=== PATIENT | female | born 1985 | race Caucasian/White ===

== ENCOUNTER → 2017-03-25 | Outpatient (CLI) | payer OTHER ==
[2017-03-25 16:34] LABS: URINE APPEARANCE CLEAR (CLEAR); URINE BILIRUBIN NEG (NEG); URINE COLOR YELLOW; URINE NITRITE NEG (NEG); URINE PH 6.5 (4.5-7.5); URINE SPECIFIC GRAVITY 1.017 (1.000-1.030); UROBILINOGEN NEG (NEG)
[2017-03-25 16:42] LABS: MANUAL MICROSCOPIC REQUIRED? NO; REVIEW REQ? NO
== END | disposition home or self-care (01) ==
LOC: C.LABSPEC 15:59
PROVIDERS: ATTEND Obstetrics & Gynecology
DX: Z34.01 Encounter for supervision of normal first pregnancy, first trimester (principal)

== ENCOUNTER → 2017-04-01 | Outpatient (CLI) | payer OTHER ==
[2017-04-04 15:39] LABS: CHLAMYDIA TRACH RNA*** NOT DETECTED (NOT DETECTED); GC (NEIS GONORRHOEAE)RNA** NOT DETECTED (NOT DETECTED)
== END | disposition home or self-care (01) ==
LOC: C.LABSPEC 17:44
PROVIDERS: ATTEND Obstetrics & Gynecology
DX: Z34.01 Encounter for supervision of normal first pregnancy, first trimester (principal)

== ENCOUNTER → 2017-04-01 | Outpatient (CLI) | payer OTHER ==
[2017-04-01 17:39] LABS: BASO % 0.2 %; BASO ABS # 0.03 K/uL (0-0.2); COMPLETE YES; EOS % 0.1 %; HEMATOCRIT 39.3 % (37-47); IG% 0.4 %; LYMPH % 17.2 %; LYMPH ABS # 2.22 K/uL (1.2-3.4); MEAN CELL VOLUME 87.3 fL (80-100); MEAN CORPUSCULAR HGB CONC 34.4 g/dl (32-36); MEAN PLATELET VOLUME 11.1 fL (7.4-10.4); MONO % 4.7 %; NEUT % 77.4 %; PLATELET COUNT 234 K/uL (130-400); WHITE BLOOD COUNT 12.88 K/uL (4.8-10.8)
== END | disposition home or self-care (01) ==
LOC: C.LAB1850 16:11
PROVIDERS: ATTEND Obstetrics & Gynecology
DX: Z34.01 Encounter for supervision of normal first pregnancy, first trimester (principal)

== ENCOUNTER → 2017-05-27 | Outpatient (CLI) | payer OTHER ==
[2017-05-27 17:13] LABS: GTGD 50 Grams
== END | disposition home or self-care (01) ==
LOC: C.LAB1850 16:02
PROVIDERS: ATTEND Obstetrics & Gynecology
DX: Z34.02 Encounter for supervision of normal first pregnancy, second trimester (principal)

== ENCOUNTER → 2017-08-26 | Outpatient (CLI) | payer OTHER ==
[2017-08-26 16:43] LABS: HEMATOCRIT 33.1 % (37-47)
[2017-08-26 17:14] LABS: GTGD 50 Grams
[2017-08-26 18:24] LABS: URINE APPEARANCE CLEAR (CLEAR); URINE BILIRUBIN NEG (NEG); URINE COLOR YELLOW; URINE EPITHELIAL CELL AUTO 20-30 /lpf (0-5); URINE NITRITE NEG (NEG); URINE PH 6.5 (4.5-7.5); URINE SPECIFIC GRAVITY 1.016 (1.000-1.030); UROBILINOGEN NEG (NEG)
[2017-08-26 18:29] LABS: MANUAL MICROSCOPIC REQUIRED? NO; REVIEW REQ? NO
== END | disposition home or self-care (01) ==
LOC: C.LAB1850 15:50
PROVIDERS: ATTEND Obstetrics & Gynecology
DX: Z34.02 Encounter for supervision of normal first pregnancy, second trimester (principal)

== ENCOUNTER → 2017-09-08 | Outpatient (CLI) | payer OTHER | END | disposition home or self-care (01) | LOC: C.LAB1850 08:04 | PROVIDERS: ATTEND Obstetrics & Gynecology | DX: O28.1 Abnormal biochemical finding on antenatal screening of mother (principal) ==

== ENCOUNTER → 2017-10-19 | Outpatient (CLI) | payer OTHER | END | disposition home or self-care (01) | LOC: C.LABSPEC 17:33 | PROVIDERS: ATTEND Obstetrics & Gynecology | DX: Z34.03 Encounter for supervision of normal first pregnancy, third trimester (principal) ==

== ENCOUNTER 2017-11-04 16:52 | Inpatient (IN) | payer OTHER ==
[~2017-11-04] VITALS: Ht 162.6 cm; Wt 105.0 kg
[2017-11-04 17:39] VITALS: Ht 162.6 cm; Wt 105.0 kg
[2017-11-04] MEDS ORDERED: PRENTAB26 PO (17:40)
[2017-11-04 18:30] LABS: HEMATOCRIT 38.1 % (37-47); MEAN CELL VOLUME 86.6 fL (80-100); MEAN CORPUSCULAR HEMOGLOBIN 29.8 pg (25-34); MEAN CORPUSCULAR HGB CONC 34.4 g/dl (32-36); MEAN PLATELET VOLUME 12.3 fL (7.4-10.4); PLATELET COUNT 135 K/uL (130-400); WHITE BLOOD COUNT 9.08 K/uL (4.8-10.8)
[2017-11-04 18:51] LABS: ALT/SGPT 24 U/L (12-78); AST/SGOT 25 U/L (15-37); CREATININE 0.65 mg/dl (0.60-1.20)
[2017-11-04 18:54] LABS: ALKALINE PHOSPHATASE 172 U/L (45-117)
[2017-11-04] MEDS ORDERED: LACTATED RINGER'S 1000ML 1,000 ML IV PRN (21:05)
[2017-11-05] MEDS: LACTATED RINGER'S 1000ML 1,000 ML IV SCH ×2 (00:56→05:10)
[2017-11-05] MEDS ORDERED: BUTORPHANOL TARTRATE 1 MG/ML VIAL IV PRN (02:15)
[2017-11-05] MEDS ORDERED: LACTATED RINGER'S 1000ML 500 ML IV PRN ×2 (03:57→05:39)
[2017-11-05] MEDS ORDERED: OXYTOCIN 30 UNITS/500ML NSS IV PRN ×2 (04:00→10:15)
[2017-11-05] MEDS ORDERED: BUPIVACAINE 0.25% 30 ML VIAL ONE (04:49)
[2017-11-05] MEDS ORDERED: FENTANYL 2MCG/ML ROPIV 1.25MG/ML 100ML BAG EPI ONE (04:49)
[2017-11-05] MEDS ORDERED: EpHEDrine SULFATE INJ 50 MG/ML AMP ONE (04:49)
[2017-11-05] MEDS ORDERED: FENTANYL CITRATE INJ 50 MCG/1 ML 2 ML VIAL ONE (04:49)
[2017-11-05] MEDS ORDERED: NALOXONE HCL INJ 1 MG in SODIUM CHLORIDE 0.9% 1000ML 1,000 ML IV PRN (05:39)
[2017-11-05] MEDS ORDERED: NALOXONE HCL INJ 0.4 MG/1 ML VIAL/CARP IV PRN (05:45)
[2017-11-05] MEDS ORDERED: FENTANYL 2MCG/ML ROPIV 1.25MG/ML 100ML BAG EPI PRN (05:45)
[2017-11-05] MEDS ORDERED: EpHEDrine SULFATE INJ 50 MG/ML AMP IV PRN (05:45)
[2017-11-05] MEDS ORDERED: NALBUPHINE HCL INJ 10 MG/ML AMP IV PRN (05:45)
[2017-11-05] MEDS ORDERED: DiphenhydrAMINE HCL 50 MG/ML VIAL IV PRN (05:45)
[2017-11-05] MEDS ORDERED: ONDANSETRON INJ 2 MG/ML 2 ML VIAL IV PRN (05:45)
[2017-11-05] MEDS ORDERED: HYDROCORTISONE ACETATE 25 MG SUPP PR PRN (10:15)
[2017-11-05] MEDS ORDERED: SUPERCREAM 0.870 % 15GM JAR EXT PRN (10:15)
[2017-11-05] MEDS ORDERED: LANOLIN OINT EXT PRN ×2 (10:15)
[2017-11-05] MEDS ORDERED: BENZOCAINE 20% AER SPR 82.5 GM CAN EXT PRN (10:15)
[2017-11-05] MEDS ORDERED: ACETAMINOPHEN 325 MG TAB PO PRN (10:15)
--- NOTE | 2017-11-05 10:45 | DELIVERY SUMMARY ---
DATE OF OPERATION: 11/05/2017 FINDINGS: Viable male with Apgars of 8 and 9. Baby delivered over a midline second-degree laceration with second-degree right labial tear. Placenta delivered spontaneously. Cord gasses are pending. Lacerations repaired in the routine fashion. ESTIMATED BLOOD LOSS: 300 mL. LABOR NOTE: The patient is a 32-year-old 1, para 0 with an EDC of 13 November at 38+ weeks gestational age, who was sent to labor and delivery on the evening of 04 November from the office for evaluation of elevated blood pressure. The patient's blood pressure was noted to be elevated x2 to 160/90 range at her regularly scheduled OB visit. No previous elevated blood pressures. The patient was sent to labor and delivery for further observation and was deemed to have a generational hypertension and was admitted. Her course prior to this had been unremarkable. Her blood type AB positive, antibody negative, rubella immune, and hepatitis B negative. She had normal 1-hour Glucola at 16 weeks, elevated at 28 weeks with a normal 2-hour glucose tolerance test and a negative third trimester beta strep blood culture. On labor and delivery, the patient had preeclamptic labs drawn, which were within normal limits, but her blood pressure remained elevated, making the diagnosis of gestational hypertension. Coincident with this, the patient began to develop katharina and went into labor spontaneously on her own. The contractions increased in intensity and anesthesia was consulted and epidural was placed. After placement of epidural, contractions had spaced out and Pitocin augmentation was initiated. The patient progressed to approximately 5-6 cm dilated at which point, delivering physician assumed the case. The patient went onto progress to full dilatation and began her second stage. She pushed for approximately 30 minutes, delivering the viable male infant. Nuchal cord x1 reduced on the perineum. Cord was clamped and cut. Cord gases and cord blood samples obtained. Placenta delivered spontaneously. Inspection of the perineum showed a midline second-degree laceration with a right labial tear. Laceration was repaired with 4-0 and 2-0 Vicryl as well as the right labial laceration with 4-0 Vicryl. Estimated blood loss was 300 mL. Sponge and needle count was correct. I attest to the content of the Intraoperative Record and any orders documented therein. Any exception s are noted below.
--- NOTE | 2017-11-05 12:00 | Anesthesia Procedure Note ---
Anesthesia Epidural Removal Nt Date & Time Nov 05, 2017 at 11:59 Vital Signs Pain Intensity: 0.0 Notes Mental Status: alert / awake / arousable, participated in evaluation Nausea / Vomiting: adequately controlled Pain: adequately controlled Airway Patency, RR, SpO2: stable & adequate BP & HR: stable & adequate Hydration State: stable & adequate Neuraxial Anesthesia: was administered, sensory block is resolving Anesthetic Complications: no major complications apparent, pt satisfied with anesthetic care Epidural: removed without complications, with tip intact
[2017-11-05] MEDS: IBUPROFEN 600 MG TAB PO PRN ×2 (12:45→20:30)
[2017-11-05 14:05] VITALS: BP 156/90; PULSE 100; TEMP 37.2
[2017-11-05 15:30] VITALS: BP 142/90; PULSE 80; TEMP 36.8; O2SAT 98
[2017-11-05 20:00] VITALS: BP 155/90; PULSE 88; TEMP 36.7; O2SAT 98
[2017-11-05] MEDS: DOCUSATE SODIUM 100 MG CAP PO SCH (20:11)
[2017-11-05 23:25] VITALS: BP 153/84; PULSE 85; TEMP 36.8; O2SAT 97
[2017-11-06 03:05] VITALS: BP 133/80; PULSE 85; TEMP 36.5; O2SAT 99
[2017-11-06] MEDS: IBUPROFEN 600 MG TAB PO PRN ×3 (03:23→16:46)
[2017-11-06 07:40] VITALS: BP 136/91; PULSE 68; TEMP 36.8
--- NOTE | 2017-11-06 07:40 | Progress Note ---
Subjective Nov 06, 2017. Subjective conversation w/ patient, physical exam, chart review, lab review Ambulation: ambulating normally Voiding: no voiding problems Passing Gas: Yes Diet Tolerance: Regular Diet Lochia: Moderate Feeding Type: Breast Feeding Pain: controlled Review of Systems Respiratory: No shortness of breath Cardiac: No chest pain Female : No dysuria Objective Vital Signs Date Time Temp Pulse Resp B/P (MAP) Pulse Ox O2 Delivery O2 Flow Rate FiO2 11/06/17 03:05 36.5 85 16 133/80 (97) 99 Room Air 11/05/17 23:25 97 Room Air 11/05/17 23:25 36.8 85 20 153/84 (107) 97 Room Air 11/05/17 20:00 36.7 88 16 155/90 (111) 98 Room Air 11/05/17 15:30 36.8 80 16 142/90 (107) 98 Room Air 11/05/17 15:30 98 Room Air 11/05/17 14:05 37.2 100 18 156/90 11/05/17 14:05 37.2 100 18 156/90 (112) Room Air 11/05/17 14:05 Room Air Physical Exam General Appearance: WELL-APPEARING, WD/WN, NO APPARENT DISTRESS Respiratory/Chest: lungs clear, normal breath sounds, no respiratory distress Cardiovascular: regular rate, rhythm, no gallop Abdomen: normal bowel sounds, soft Fundus: Firm, Non-Tender, Relation to Umbilicus (1 below U) Extremities: non-tender, normal inspection Laboratory Results Last 24 Hours Test 11/06/17 05:54 Hemoglobin 10.5 g/dL Hematocrit 32.0 % Assessment and Plan Post- Day#: 1 Continue Routine Care: 32 yof (now1) induced for BPs in office SBP 150 160s - delivered vaginally 11/05 1000, 2nd deg lac AB+/RI/GBS - Vitals reviewed and wnl. Normotensive last check. Hgb 13.1, 10.5. No s/s anemia. Pt doing well clinically, desires to go home. Discussed discharge, pending baby though. Continue routine care, encourage ambulation, monitor lochia, control pain motrin/tylenol. DMITRY ESTRADA FMR PGY 1. Resident Physician Supervision Note: I interviewed and examined the patient. Discussed with Dr. Estrada and agree with findings and plan as documented in the note. Any exceptions or clarifications are listed here: Patient does not desire D/C home today. Documented By: Tierra Holder Resident Tracking Resident Involvement: Resident Care Provided Care Provided: OB Delivery
--- NOTE | 2017-11-06 07:41 | Discharge Instructions ---
Discharge Instructions Date of Service Nov 06, 2017. Admission Reason for Admission: Prolonged Monitering Discharge Discharge Diagnosis / Problem: Spontaneous Vaginal Delivery Discharge Goals Goal(s): Routine recovery after delivery Medications Continue Dispensed Medications: supercream, dermaplast, tucks, lansinoh Activity Recommendations Activity Limitations: per Instructions/Follow-up section . Instructions / Follow-Up Instructions / Follow-Up ACTIVITY RECOMMENDATIONS: * Gradual return to full activity over the next 2-3 weeks. * No lifting - nothing heavier than baby over the next 2-3 weeks. * Do not engage in vigorous exercise, sexual activity or sports until cleared by your physician. * Do not drive or operate any motorized equipment until cleared by your physician. * You may shower/bathe daily. MEDICATIONS: For discomfort or pain, you may use Acetaminophen (Tylenol), Ibuprofen (Advil), or Naproxen (Aleve) following the package directions. For constipation you may use Colace following the package directions. BREAST CARE: If you are not breast feeding: * Wear a supportive bra 24 hours a day for one to two weeks. * Avoid stimulating your breasts and nipples as much as possible during the first few weeks after delivery. * When taking a shower, have the warm water hit your back, not breasts. * When your breasts feel full, apply ice packs. Usually three to four times a day helps ease the discomfort. * Take a mild pain medication (Tylenol / Motrin) when you are uncomfortable. If breast feeding: * Use breast milk to lubricate nipples. Lansinoh cream may be used for sore nipples. You do not need to remove cream prior to breast feeding. If using a different brand of cream, check the label for directions regarding removal of cream prior to nursing. * Wear a supportive bra. * If having problems with breasts or breast feeding, call a beauty consultant or your health care provider. EPISIOTOMY CARE: After delivery, if you have an episiotomy (stitches), the following steps will ease discomfort and aid healing. * For the first 24 hours after delivery, place ice packs next to your episiotomy to help reduce swelling. * After the first 24 hour-period, sitz baths, either portable or in the tub, are suggested. A shower with a shower arm sprayed over the episiotomy may be comforting. * [place] care should be done after each voiding and bowel movement. Squirt warm water from a plastic bottle over the perineum (region of the body between the anus and urinary opening) and pat dry. * Use Dermoplast to ease discomfort. Shake container. [place] directly over the episiotomy. Place a Tucks on a clean sanitary pad next to your episiotomy. SPECIAL CARE INSTRUCTIONS: When you are discharged from the hospital, it is important for you to follow the instructions listed below: * During the first week at home, you should be able to care for yourself and your baby. In addition, the usual light household activities are encouraged. * Limit your activities to the way you feel. Do not try to clean the house or move furniture. Be sensible. * If you actively engage in sports and have done so up until the time of your delivery, you may resume these activities as soon as you feel able. This may take up to one month or even longer. Use good judgment. * Continue to take your vitamins for at least six weeks after the of your baby. * Your diet need not be limited unless you were on a special diet before your delivery. Breast-feeding mothers need around 2500 calories per day and at least 64-80 ounces of fluid per day (8 to 10 glasses). * You should eat foods from the four major food groups. Crash diets or fad diets are to be avoided. Eating lean meats, fresh fruits and vegetables, low-fat dairy products, high fiber foods and a regular exercise program, will help you get back to your pre- weight without putting your health at risk. * Constipation is sometimes a problem after delivery. Take a mild laxative as needed. If breast feeding, Milk of Magnesia is acceptable to use. You may use a suppository or Fleets enema if no episiotomy. * A daily shower or tub bath is suggested. Be sure to thoroughly and gently dry the perineum. * A bloody vaginal discharge will usually continue until around four weeks post . A small amount of bleeding may continue for as long as six weeks. Vaginal discharge changes from the bright red bleeding after delivery to pink then brownish and finally yellowish-pink before becoming white and disappearing. * Bleeding may increase with activity. Your first period may come in 4-8 weeks. If you are breast feeding, your period may be delayed even longer. * Cos Cob (sex) can begin whenever both you and your partner feel comfortable and do not have any form of genital infection. It is recommended that you wait at least six weeks for internal and external healing to occur. If you have questions, please talk to your health care practitioner. A condom should be used to prevent infection and . * Foreplay, gentle intercourse and lubrication is very important the first several times to prevent pain. A water-based lubricant such as K-Y jelly or Astroglide may be used. * If you have RH negative blood and your baby is RH positive, you will receive RHOGAM by injection prior to discharge. The nurse will give you a card to keep with you that has the date and place that you received RHOGAM after delivery. * During your care, you had a Rubella screen done to check for the presence of rubella antibodies in your blood. If your test was negative, you will receive a Rubella vaccine prior to discharge. This vaccine may cause a fever, soreness at the injection site and flu-like symptoms. If these symptoms persist, notify your health care practitioner. is not advised for one month after a Rubella vaccine. * Verbalizes understanding of car seat law as reviewed with patient nursing. * Car Seat hand-out given and reviewed with patient by nursing. * Shaken baby information reviewed with patient by nursing. Call you doctor if: * Heavy bleeding (saturating several pads an hour) or passing clots the size of your fist. * A fever >101 degrees F (38.3 degrees C) on two occasions four hours apart and /or chills. * Unusual pain in the pelvic or vaginal areas. * "Baby Blues" lasting longer than two weeks. If you have any questions or concerns, call your health care practitioner at . FOLLOW UP VISIT: * Please call the office at to schedule a 6 week examination. It is important you keep this appointment. It is important for you to make arrangements for either yearly or twice yearly check-ups thereafter. Current Hospital Diet Patient's current hospital diet: Regular OB Diet Discharge Diet Recommended Diet: Regular Diet Pending Studies Studies pending at discharge: no Medical Emergencies . Who to Call and When: Medical Emergencies: If at any time you feel your situation is an emergency, please call 911 immediately. . Non-Emergent Contact Non-Emergency issues call your: Primary Care Provider . . "Provider Documentation" section prepared by Debby Estrada. . VTE Core Measure Inpt VTE Proph given/why not?: Treatment not indicated
[2017-11-06] MEDS: PRENATAL VITAMIN TAB PO SCH (08:06)
[2017-11-06] MEDS: DOCUSATE SODIUM 100 MG CAP PO SCH ×2 (08:06→19:37)
[2017-11-06 16:30] VITALS: BP 151/83; PULSE 101; PULSE 68; TEMP 36.8
[2017-11-06] MEDS ORDERED: BISACODYL 5 MG TABEC PO SCH (20:00)
[2017-11-06 20:35] VITALS: BP 141/83; PULSE 85
[2017-11-06 23:05] VITALS: BP 149/84; PULSE 86; TEMP 36.8
[2017-11-07 08:00] VITALS: BP 138/88; PULSE 90; TEMP 36.8
[2017-11-07] MEDS: DOCUSATE SODIUM 100 MG CAP PO SCH (08:00)
[2017-11-07] MEDS: PRENATAL VITAMIN TAB PO SCH (08:00)
[2017-11-07] MEDS: IBUPROFEN 600 MG TAB PO PRN (08:03)
--- NOTE | 2017-11-07 08:04 | Progress Note ---
Subjective Nov 07, 2017. Subjective conversation w/ patient, physical exam Ambulation: ambulating normally Voiding: no voiding problems Feeding Type: Breast Feeding Objective Vital Signs Date Time Temp Pulse Resp B/P (MAP) Pulse Ox O2 Delivery O2 Flow Rate FiO2 11/06/17 23:05 36.8 86 16 149/84 (105) Room Air 11/06/17 23:05 Room Air 11/06/17 20:35 85 141/83 (102) 11/06/17 16:30 Room Air 11/06/17 16:30 36.8 101 20 151/83 (105) Room Air Physical Exam General Appearance: WELL-APPEARING, NO APPARENT DISTRESS Fundus: Firm, Non-Tender Extremities: no calf tenderness Assessment and Plan Post- Day#: 2 Continue Routine Care: - doing well - desires d/c - instructions given - f/u in 6 weeks for check
[2017-11-07 10:30] VITALS: BP_DIAS 88; PULSE 90; TEMP 36.8
== END 2017-11-07 11:00 | disposition home or self-care (01) | DRG 775 ==
LOC: C.OPB 16:52 → C.LD 16:52 → C.OPB 21:06 → C.LD 21:06 → C.OBG 11-05 14:10
PROVIDERS: ADMIT Obstetrics & Gynecology; ATTEND Obstetrics & Gynecology
PROC: 0KQM0ZZ Repair Perineum Muscle, Open Approach (ICD-10-PCS; principal; 2017-11-05)
PROC: 10E0XZZ Delivery of Products of Conception, External Approach (ICD-10-PCS; principal; 2017-11-05)
DX: O13.4 Gestational [pregnancy-induced] hypertension without significant proteinuria, complicating childbirth (principal); O70.1 Second degree perineal laceration during delivery; O69.81X0 Labor and delivery complicated by cord around neck, without compression, not applicable or unspecified; Z37.0 Single live birth; Z3A.38 38 weeks gestation of pregnancy

== ENCOUNTER 2020-01-06 15:20 | Inpatient (IN) ==
[2020-01-06] MEDS ORDERED: LACTATED RINGER'S 1,000 ML IV PRN (15:25)
[2020-01-06] MEDS ORDERED: OXYTOCIN 30 UNITS/500 ML BAG IV PRN ×2 (15:25→17:02)
[2020-01-06] MEDS ORDERED: OXYTOCIN 30 UNITS/500ML NSS ONE (15:31)
[2020-01-06 15:48] LABS: Hematocrit (blood only) 38.4 % (37-47); Hemoglobin 12.8 g/dL (12.0-16.0); Mean Corpuscular Hemoglobin 28.1 pg (25-34); Mean Corpuscular Volume 84.2 fL (80-100); Mean Platelet Volume 12.1 fL (7.4-10.4); Platelet Count 153 K/uL (130-400); RDW Coefficient of Variation 14.9 % (11.5-14.5); RDW Standard Deviation 45.6 fL (36.4-46.3); Red Blood Count 4.56 M/uL (4.2-5.4); White Blood Count 10.41 K/uL (4.8-10.8)
[2020-01-06 15:52] LABS: Mean Corpuscular Hgb Conc 33.3 g/dL (32-36)
[2020-01-06] MEDS ORDERED: IBUPROFEN 600 MG TAB PO ONE (16:06)
--- NOTE | 2020-01-06 16:06 | Delivery Summary ---
Vaginal Delivery Summary Date of Service January 06, 2020 Vaginal Delivery Summary , arrived in L+D at 8cm, offered epidural, or AROM, chose AROM. Clear fkuid, delivered shortly thereafter in OA position. Mouth then nares suctioned. No nuchal cord. Easy delivery with no excess force used. Placenta removed with traction, IV pitocin started. 2nd degree tear repaired with 3-0 vicryl and local. EBL 150ml
[2020-01-06] MEDS ORDERED: SUPERCREAM 0.870% 15 GM JAR EXT PRN (17:02)
[2020-01-06] MEDS ORDERED: BENZOCAINE 20% AER SPR 82.5 GM CAN EXT PRN (17:02)
[2020-01-06] MEDS ORDERED: OXYCODONE/ACETAMINOPHEN 5mg/325mg TAB PO PRN (17:02)
[2020-01-06] MEDS ORDERED: HYDROCORTISONE ACETATE 25 MG SUPP PR PRN (17:02)
[2020-01-06] MEDS ORDERED: DIPHTHERIA/TETANUS/PERTUSSIS 0.5 ML SYR/VIAL IM ONE (17:02)
[2020-01-06] MEDS ORDERED: ACETAMINOPHEN 325 MG TAB PO PRN (17:02)
[2020-01-06] MEDS: DOCUSATE SODIUM 100 MG CAP PO SCH (20:40)
[2020-01-06] MEDS: IBUPROFEN 600 MG TAB PO PRN (20:45)
[2020-01-07] MEDS: IBUPROFEN 600 MG TAB PO PRN ×3 (03:51→20:44)
[2020-01-07 07:17] LABS: Hematocrit (blood only) 37.3 % (37-47); Hemoglobin 12.8 g/dL (12.0-16.0); Mean Corpuscular Hgb Conc 34.3 g/dL (32-36); Mean Corpuscular Volume 84.4 fL (80-100); Mean Platelet Volume 12.9 fL (7.4-10.4); Platelet Count 155 K/uL (130-400); RDW Coefficient of Variation 15.2 % (11.5-14.5); RDW Standard Deviation 46.4 fL (36.4-46.3); Red Blood Count 4.42 M/uL (4.2-5.4); White Blood Count 13.93 K/uL (4.8-10.8)
--- NOTE | 2020-01-07 08:06 | Obstetrical Progress Note ---
Date of Service January 07, 2020 Assessment & Plan (1) state: meets criteria, no depression, home Subjective Ambulation: ambulating normally Voiding: no voiding problems Diet Tolerance:: regular diet Lochia:: Small Feeding Type:: breast feeding Current Pain Level(1-10): 2 Physical Exam Genitourinary ext neg, uterus firm Results & Data Vital Signs (Past 12 Hours) Vital Signs Temp Pulse Resp BP 01/07/20 04:11 98.1 F 85 18 01/07/20 00:00 98.6 F 18 127/84
[2020-01-07] MEDS ORDERED: NON-FORMULARY MEDICATION (Prenat.Vits,Cal,Min-Iron-Folic 1 TAB) PO SCH (09:00)
[2020-01-07] MEDS: PRENATAL VITAMIN 1 TAB PO SCH (09:01)
[2020-01-07] MEDS: DOCUSATE SODIUM 100 MG CAP PO SCH ×2 (09:01→20:44)
[2020-01-07] MEDS ORDERED: bisacodyL 5 MG TABEC PO SCH (20:00)
[2020-01-08 06:09] LABS: Hematocrit (blood only) 37.7 % (37-47); Hemoglobin 12.4 g/dL (12.0-16.0)
--- NOTE | 2020-01-08 06:27 | Obstetrical Progress Note ---
Date of Service <Jarrod Neely DO - Last Filed: 01/08/20 06:27> January 08, 2020 Assessment & Plan <DO Sedrick Canales Last Filed: 01/08/20 06:27> (1) state: -PPD#2 -Vitals reviewed, WNL (Tmax 36.9) - GBS -, Blood Type AB+ - Clinically stable. - Feels well today. Eating well, voiding well, ambulating well. - Pain well controlled. - Routine post- care - After discharge will have [address] Franky Wren #:: 2 Subjective <Jarrod Neely DO - Last Filed: 01/08/20 06:27> Ambulation: ambulating normally Voiding: no voiding problems Passing Gas:: Yes Diet Tolerance:: regular diet Lochia:: Small Feeding Type:: breast feeding Current Pain Level(1-10): 1 (improved with analgesics) Patient is a 34 PPD#2. Patient states that she is feeling well today and that her pain is well controlled. She has no other complaints at this time. Constitutional: no fever and no chills Respiratory: no cough, no dyspnea and no wheezing Cardiovascular: no chest pain, no dyspnea, no palpitations, no edema and no calf pain Breast: no breast pain Gastrointestinal: no abdominal pain, no nausea and no vomiting Genitourinary (female): no dysuria and no difficulty urinating Neurologic: no headache(s) Physical Exam <DO Sedrick Canales Last Filed: 01/08/20 06:27> Constitutional WD/WN, vitals as above Respiratory normal respiratory effort, lungs clear to auscultation Cardiovascular Rate/Rhythm: regular rate and regular rhythm Heart Sounds: normal S1 and normal S2; no click, no gallop, no murmur and no cardiac rub Extremities: + edema (+1); no calf tenderness Gastrointestinal (Abdomen) Inspection/Auscultation: abdomen normal to inspection and normal bowel sounds Percussion/Palpation: abdomen soft; abdomen nontender Genitourinary OB Exam Abdomen: + fundal height Fundus: + firm and + relation to umbilicus (1cm below); not tender and not boggy Results & Data <Jarrod Huangmayelin DO [place] Last Filed: 01/08/20 06:27> Vital Signs (Past 12 Hours) Vital Signs Temp Pulse Resp BP 01/07/20 23:30 36.8 C 79 18 138/65 01/07/20 20:00 36.7 C 85 18 138/88 <Pierre Wilkins MD, FACOG - Last Filed: 01/08/20 06:53> Co-Signing Physician Notes Resident Physician Supervision Note: I was present with Dr. Neely during the history and exam. I discussed the case with the resident and agree with the findings and plan as documented in the note. Any exceptions or clarifications are listed here: [None] Documented By: Pierre Wilkins MD, FACOG Resident Activity Tracking <Jarrod Neely DO - Last Filed: 01/08/20 06:27> Resident Involvement: Resident Care Provided Care Provided: OB Delivery
[2020-01-08] MEDS ORDERED: bisacodyL 10 MG SUPP PR PRN (07:00)
[2020-01-08] MEDS: PRENATAL VITAMIN 1 TAB PO SCH (08:45)
[2020-01-08] MEDS: DOCUSATE SODIUM 100 MG CAP PO SCH (08:45)
== END 2020-01-08 13:15 | disposition home or self-care (01) | DRG 807 ==
LOC: OPB 15:20 → 4S1 15:22 → 4S2 19:38